=== PATIENT | female | born 1940 | race Caucasian/White ===

== ENCOUNTER 2024-05-08 16:18 | Inpatient (IN) | payer OTHER ==
[~2024-05-08] VITALS: Ht 167.6 cm; Wt 79.5 kg
[~2024-05-08 16:18] MED LIST: ALPR0.255 PO; ASA81 PO; COR25 PO; DOXY100C5 PO; GUAI100S14 PO; LEVO75TA7 PO; LIP20 PO; LOSA-413 PO; MIRT-91 PO; NIFE90TA24 PO; ZOLPIDEM PO
[2024-05-08 16:46] VITALS: BP_SYST 184; PULSE 69; RESP 18; TEMP 98.6; O2SAT 96
[2024-05-08] MEDS ORDERED: EZET10TA30 PO (17:23)
[2024-05-08] MEDS ORDERED: ZOLP5TAB2 PO (17:23)
[2024-05-08] MEDS ORDERED: MIRT-91 PO (17:23)
[2024-05-08] MEDS ORDERED: CLON0.1T PO (17:23)
[2024-05-08 17:58] LABS: ANION GAP 9 (5-15); CALCIUM 9.2 mg/dL (8.4-11.0); CARBON DIOXIDE 26 mmol/L (23-29); CHLORIDE 107 mmol/L (98-107); CREATININE 1.16 mg/dL (0.55-1.30); GLUCOSE 110 mg/dL (74-106); POTASSIUM 4.2 mmol/L (3.5-5.1); SODIUM SERUM 142 mmol/L (136-145); UREA NITROGEN, BLOOD 21 mg/dL (8-21)
[2024-05-08 17:59] LABS: BASOPHILS # (AUTO) 0.1 K/uL (0.0-0.2); BASOPHILS % (AUTO) 1.1 % (0.0-2.0); EOSINOPHILS # (AUTO) 0.1 K/uL (0.0-0.4); EOSINOPHILS % (AUTO) 1.3 % (0.0-4.0); HEMATOCRIT 43.2 % (36-48); HEMOGLOBIN 14.8 g/dL (12.0-16.0); LYMPHOCYTES # (AUTO) 2.8 K/uL (1.0-5.5); LYMPHOCYTES % (AUTO) 28.4 % (20.5-51.5); MEAN CORPUSCULAR HEMOGLOBIN 31 pg (27-31); MEAN CORPUSCULAR HGB CONC 34 % (32-36); MEAN CORPUSCULAR VOLUME 92 fL (79.0-98.0); MONOCYTES # (AUTO) 0.9 K/uL (0.0-1.0); MONOCYTES % (AUTO) 8.8 % (1.7-9.3); NEUTROPHILS % (AUTO) 60.4 % (40.0-70.0); PLATELET COUNT (AUTO) 266 K/uL (130-430); RED BLOOD CELL COUNT(AUTO) 4.72 MIL/uL (4.2-6.2); RED CELL DISTRIBUTION WIDTH 13.7 % (9.0-15.0); WHITE BLOOD COUNT (AUTO) 9.9 K/uL (4.8-10.8)
[2024-05-08 18:01] LABS: PROTHROMBIN TIME 10.4 SECS (9.5-12.5)
[2024-05-08] MEDS ORDERED: HYDROcodone/ACETAMIN 5-325 MG TAB (NORCO/ VICODIN) PO PRN (19:00)
[2024-05-08] MEDS ORDERED: HYDROcodone/ACETAMIN 10-325 MG TAB PO PRN (19:00)
[2024-05-08] MEDS ORDERED: ALBUTEROL SULFATE 0.083% 2.5 MG/3 ML VIAL.NEB INH PRN (19:00)
[2024-05-08] MEDS ORDERED: MORPHINE 2 MG/ML INJ. SYRINGE IVP PRN (19:00)
[2024-05-08] MEDS ORDERED: ACETAMINOPHEN 325 MG TABLET PO PRN (19:00)
[2024-05-08] MEDS ORDERED: ONDANSETRON HCL 4 MG/2 ML VIAL IVP PRN (19:00)
[2024-05-08] MEDS: ENOXAPARIN SODIUM 80 MG/0.8 ML SYRINGE SUBCUT ONE (19:03)
[2024-05-08 19:06] VITALS: BP_SYST 184; PULSE 69; O2SAT 96
[2024-05-08] MEDS: cloNIDine HCL 0.1 MG TABLET PO PRN (20:43)
[2024-05-08] MEDS ORDERED: CARVEDILOL 25 MG TABLET (COREG) PO SCH (21:00)
[2024-05-08] MEDS ORDERED: LOSARTAN POTASSIUM 50 MG TABLET (COZAAR) PO SCH (21:00)
[2024-05-08 21:31] VITALS: BP_SYST 158; PULSE 68; RESP 20; TEMP 97.8
[2024-05-08] MEDS: ZOLPIDEM TARTRATE 5 MG TABLET PO SCH (22:14)
[2024-05-08] MEDS: MIRTAZAPINE 15 MG TABLET PO SCH (22:14)
[2024-05-09 00:15] VITALS: BP_SYST 129; PULSE 52; RESP 18; TEMP 97; O2SAT 97
[2024-05-09] MEDS ORDERED: DILT240C54 PO (05:05)
[2024-05-09 06:22] LABS: BASOPHILS # (AUTO) 0.1 K/uL (0.0-0.2); BASOPHILS % (AUTO) 0.6 % (0.0-2.0); EOSINOPHILS # (AUTO) 0.2 K/uL (0.0-0.4); EOSINOPHILS % (AUTO) 1.9 % (0.0-4.0); HEMATOCRIT 40.9 % (36-48); HEMOGLOBIN 14.1 g/dL (12.0-16.0); LYMPHOCYTES # (AUTO) 3.4 K/uL (1.0-5.5); MEAN CORPUSCULAR HEMOGLOBIN 32 pg (27-31); MEAN CORPUSCULAR HGB CONC 34 % (32-36); MEAN CORPUSCULAR VOLUME 92 fL (79.0-98.0); MONOCYTES # (AUTO) 0.7 K/uL (0.0-1.0); MONOCYTES % (AUTO) 7.7 % (1.7-9.3); NEUTROPHILS # (AUTO) 5.3 K/uL (1.8-7.7); NEUTROPHILS % (AUTO) 54.8 % (40.0-70.0); PLATELET COUNT (AUTO) 272 K/uL (130-430); RED BLOOD CELL COUNT(AUTO) 4.45 MIL/uL (4.2-6.2); RED CELL DISTRIBUTION WIDTH 13.8 % (9.0-15.0); WHITE BLOOD COUNT (AUTO) 9.7 K/uL (4.8-10.8)
[2024-05-09 07:05] LABS: ALANINE AMINOTRANSFERASE 30 U/L (12-78); ALBUMIN 3.1 g/dL (3.4-4.8); ANION GAP 11 (5-15); ASPARTATE AMINOTRANSFERASE 29 U/L (10-37); CALCIUM 8.9 mg/dL (8.4-11.0); CARBON DIOXIDE 26 mmol/L (23-29); CHLORIDE 107 mmol/L (98-107); CREATININE 1.11 mg/dL (0.55-1.30); GLUCOSE 97 mg/dL (74-106); POTASSIUM 4.3 mmol/L (3.5-5.1); SODIUM SERUM 144 mmol/L (136-145); TOTAL BILIRUBIN 0.5 mg/dL (0.0-1.0); TOTAL PROTEIN, SERUM 6.6 g/dL (6.4-8.3); UREA NITROGEN, BLOOD 15 mg/dL (8-21)
[2024-05-09] MEDS: LEVOTHYROXINE SODIUM 0.075 MG TABLET PO ONE (07:08)
[2024-05-09 08:00] VITALS: BP_SYST 178; PULSE 66; RESP 18; TEMP 97.1; O2SAT 94
[2024-05-09] MEDS: ASPIRIN 81 MG TAB.CHEW PO SCH (08:16)
[2024-05-09] MEDS: ALPRAZolam 0.25 MG TABLET PO SCH (08:16)
[2024-05-09] MEDS: APIXABAN 2.5 MG TABLET PO ONE (09:49)
[2024-05-09] MEDS: LOSARTAN POTASSIUM 50 MG TABLET (COZAAR) PO ONE (09:49)
[2024-05-09] MEDS: ATORVASTATIN 20 MG TABLET PO SCH (09:50)
[2024-05-09 10:57] VITALS: BP_SYST 128; PULSE 57; RESP 14; TEMP 98.3; O2SAT 96
[2024-05-09 16:55] VITALS: BP_SYST 125; PULSE 59; RESP 14; TEMP 98.1; O2SAT 97
[2024-05-09 20:00] VITALS: BP_SYST 161; PULSE 71; RESP 18; TEMP 97.7; O2SAT 98
[2024-05-09] MEDS: NIFEdipine 30 MG TAB.ER.24 PO SCH (20:28)
[2024-05-09] MEDS: APIXABAN 2.5 MG TABLET PO SCH (20:30)
[2024-05-09] MEDS ORDERED: MIRTAZAPINE 15 MG TABLET PO SCH (21:00)
[2024-05-09] MEDS ORDERED: ZOLPIDEM TARTRATE 5 MG TABLET PO SCH (21:00)
[2024-05-10 01:16] VITALS: BP_SYST 124; PULSE 68; RESP 18; TEMP 97.8; O2SAT 99
[2024-05-10] MEDS: LEVOTHYROXINE SODIUM 0.075 MG TABLET PO SCH (06:05)
[2024-05-10 07:30] LABS: BASOPHILS # (AUTO) 0.1 K/uL (0.0-0.2); BASOPHILS % (AUTO) 0.8 % (0.0-2.0); EOSINOPHILS # (AUTO) 0.2 K/uL (0.0-0.4); EOSINOPHILS % (AUTO) 2.2 % (0.0-4.0); HEMATOCRIT 42.3 % (36-48); HEMOGLOBIN 14.6 g/dL (12.0-16.0); LYMPHOCYTES # (AUTO) 2.9 K/uL (1.0-5.5); LYMPHOCYTES % (AUTO) 32.4 % (20.5-51.5); MEAN CORPUSCULAR HEMOGLOBIN 32 pg (27-31); MEAN CORPUSCULAR HGB CONC 35 % (32-36); MEAN CORPUSCULAR VOLUME 92 fL (79.0-98.0); MONOCYTES # (AUTO) 0.7 K/uL (0.0-1.0); MONOCYTES % (AUTO) 8.1 % (1.7-9.3); NEUTROPHILS # (AUTO) 5.1 K/uL (1.8-7.7); NEUTROPHILS % (AUTO) 56.5 % (40.0-70.0); PLATELET COUNT (AUTO) 279 K/uL (130-430); RED BLOOD CELL COUNT(AUTO) 4.59 MIL/uL (4.2-6.2); RED CELL DISTRIBUTION WIDTH 13.6 % (9.0-15.0)
[2024-05-10 07:41] LABS: ALANINE AMINOTRANSFERASE 21 U/L (12-78); ALBUMIN 3.1 g/dL (3.4-4.8); ANION GAP 11 (5-15); ASPARTATE AMINOTRANSFERASE 35 U/L (10-37); CALCIUM 8.9 mg/dL (8.4-11.0); CARBON DIOXIDE 26 mmol/L (23-29); CHLORIDE 107 mmol/L (98-107); GLUCOSE 99 mg/dL (74-106); POTASSIUM 4.5 mmol/L (3.5-5.1); SODIUM SERUM 144 mmol/L (136-145); TOTAL BILIRUBIN 0.5 mg/dL (0.0-1.0); TOTAL PROTEIN, SERUM 6.7 g/dL (6.4-8.3); UREA NITROGEN, BLOOD 15 mg/dL (8-21)
[2024-05-10 08:15] VITALS: BP_SYST 130; PULSE 71; RESP 19; TEMP 97.6; O2SAT 98
[2024-05-10] MEDS ORDERED: LOSARTAN POTASSIUM 50 MG TABLET (COZAAR) PO SCH (09:00)
[2024-05-10] MEDS ORDERED: APIX5TAB PO (10:36)
[2024-05-10] MEDS ORDERED: NIFE-129 PO (10:36)
[2024-05-10 11:02] VITALS: BP_SYST 123; PULSE 66; RESP 15; TEMP 98.1; O2SAT 95
[2024-05-10 12:21] VITALS: BP_SYST 128; PULSE 78; RESP 18; TEMP 98.2; O2SAT 99
== END 2024-05-10 14:30 | disposition home or self-care (01) | DRG 300 ==
LOC: SED 16:18 → SMU 18:59
PROVIDERS: ADMIT Family Medicine; ATTEND Family Medicine
DX: I82.431 Acute embolism and thrombosis of right popliteal vein (principal); E44.1 Mild protein-calorie malnutrition; I10 Essential (primary) hypertension; I16.0 Hypertensive urgency; E78.5 Hyperlipidemia, unspecified; H35.023 Exudative retinopathy, bilateral; Z88.5 Allergy status to narcotic agent; Z88.1 Allergy status to other antibiotic agents; Z79.82 Long term (current) use of aspirin; Z79.899 Other long term (current) drug therapy; Z68.28 Body mass index [BMI] 28.0-28.9, adult
CPT/HCPCS: 36415; 71045; 80048; 80053; 85025; 85610; 85730; 93005; 94070; 96372; 99285; J1650